=== PATIENT | female | born 2000 | race Caucasian/White ===

== ENCOUNTER 2019-08-29 21:35 | Inpatient (IN) ==
[2019-08-29] MEDS ORDERED: OXYTOCIN 30 UNITS/500 ML BAG IV PRN ×2 (23:06→23:10)
[2019-08-29] MEDS ORDERED: LACTATED RINGER'S 1,000 ML IV PRN (23:06)
[2019-08-29] MEDS ORDERED: ePHEDrine sulfate 50 MG/ML AMP ONE (23:12)
[2019-08-29] MEDS ORDERED: BUPIVACAINE 0.25% 30 ML VIAL ONE (23:13)
[2019-08-29] MEDS ORDERED: fentaNYL citrate 100 MCG/2 ML VIAL ONE (23:13)
[2019-08-29] MEDS ORDERED: fentaNYL 2MCG/ML ROPIV 1.25MG/ML 100 ML BAG EPI ONE (23:14)
--- NOTE | 2019-08-29 23:16 | History & Physical Report ---
Date of Service August 29, 2019 Assessment & Plan (1) Full-term PROM with onset of labor within 24 hours of rupture: (2) Need for rhogam due to Rh negative mother: (3) Late care affecting , antepartum: admit, iv labs. pt desires epidural for pain mgmt. consult anesth. if ctx space, may need to augment with pitocin. rhogam eval pp. fhts categ 1. History of Present Illness Chief Complaint: leaking clear fluid Primary Care Provider: Ranulfo Reynolds MD Chart Review 19yo at 38+wks ega by LMP and c/w 1st and 2nd trimester US, presents to L&D with leaking fluid and regular ctx. Per nurse cx changed from 3cm to 4cm with regular labor pattern and evidence of gross srom. PNC c/b 1. Late care, 20 wks to our office but then compliant with pnc 2. EIF on us, declined panorama 3. Rh neg PNL RH neg, RI, GBS neg OBH G1 GYNH: no stds, pap apr 2019 wnl, no TZ PMH: neg PSH: wisdom teeth extraction SH: neg tob, etoh and drugs FH: no rea anom, mr Allergies Allergy/AdvReac Type Severity Reaction Status Date / Time No Known Allergies Allergy Verified 08/23/19 08:51 Home Medications Home Medications Medication Instructions Recorded Confirmed Type prenat.vits,lenard,lzu-adpp-yfdgi 1 tab PO DAILY 04/19/19 08/29/19 History Patient History Family History (Updated 04/19/19 @ 16:20 by Cheryl Macias) Grandfather (Maternal) Cancer Aunt Leukemia Social History (Updated 04/19/19 @ 16:22 by Cheryl Macias) Preferred Language: Uzbek Communication Ability: Effective Bleach Range Operator Required: No Beliefs That Will Affect Care: None marital status: Single marital status details: Luis Alberto Munoz III ([phone]) Current Living Situation: Significant Other Current Living Situation Comment: lives alone with 2 dogs. current occupational status: employed current occupation: direct service professional Feels Safe at Home: Yes Safety Concerns: Feels Safe At This Time Smoking Status: Former smoker Hx Alcohol Use: No Hx Substance Use: No Physical Exam Constitutional: WD/WN, vitals as above Genitourinary: Manual OB Exam: + cervical dilation (per nurse) 4 cm and + amniotic fluid (soaked pad in hr in L&D c/w gross SROM) clear and nitrazine positive OB Exam Monitor Tracing: + external FHT monitor used (145 mod variability, accels), + external uterine monitor used (not well traced ctx q3), + category I and + normal FHT variability Results & Data Vital Signs (Past 12 Hours) Vital Signs Temp Pulse Resp BP 08/29/19 21:42 98.4 F 78 18 133/71 08/29/19 21:40 78 133/71 Coding Level of Care Code None Diagnoses Full-term PROM with onset of labor within 24 hours of rupture O42.02 Need for rhogam due to Rh negative mother Z29.13 Late care affecting , antepartum O09.30
[2019-08-29 23:28] LABS: Hematocrit (blood only) 34.4 % (37-47); Hemoglobin 11.8 g/dL (12.0-16.0); Mean Corpuscular Hemoglobin 31.2 pg (25-34); Mean Platelet Volume 9.9 fL (7.4-10.4); Platelet Count 306 K/uL (130-400); RDW Coefficient of Variation 13.1 % (11.5-14.5); RDW Standard Deviation 43.2 fL (36.4-46.3); Red Blood Count 3.78 M/uL (4.2-5.4); White Blood Count 17.22 K/uL (4.8-10.8)
[2019-08-29 23:29] LABS: Mean Corpuscular Hgb Conc 34.3 g/dL (32-36)
[2019-08-29] MEDS ORDERED: NALOXONE HCL 0.4 MG/1 ML VIAL/CARP IV PRN (23:55)
[2019-08-29] MEDS ORDERED: NALOXONE HCL 1 MG in SODIUM CHLORIDE 0.9% 1000ML 1,000 ML IV PRN (23:55)
[2019-08-29] MEDS ORDERED: DiphenhydrAMINE HCL 50 MG/ML VIAL IV PRN (23:55)
[2019-08-29] MEDS ORDERED: ONDANSETRON INJ 2 MG/ML 2 ML VIAL IV PRN (23:55)
[2019-08-29] MEDS ORDERED: fentaNYL 2MCG/ML ROPIV 1.25MG/ML 100 ML BAG EPI PRN (23:55)
[2019-08-29] MEDS ORDERED: ePHEDrine sulfate 50 MG/ML AMP IV PRN (23:55)
[2019-08-29] MEDS ORDERED: NALBUPHINE HCL INJ 10 MG/ML AMP IV PRN (23:55)
--- NOTE | 2019-08-29 23:59 | Anesthesiology Consultation ---
Date of Service August 29, 2019 Assessment & Plan Chart Review Chart Review: Patient NOT seen in Pre Admission Testing and Acceptable Risk for Labor Epidural Consults Requested none ASA ASA2 Proposed Anesthesia Anesthesia Type: Labor Epidural and CSE Risk / Benefits Reviewed With: PT / POA / Parent / Guardian, Accepts Plan and Informed Consent Obtained History Height/Weight Height: 5 ft 2 in Weight: 82.554 kg Allergies Allergy/AdvReac Type Severity Reaction Status Date / Time No Known Allergies Allergy Verified 08/23/19 08:51 Medications Home Medications Medication Instructions Recorded Confirmed Last Taken prenat.vits,lenard,zup-wewx-dyxvr 1 tab PO DAILY 04/19/19 08/29/19 08/29/19 Active Medications Generic Name Dose Route Start Last Admin Trade Name Freq PRN Reason Stop Dose Admin Lactated Ringer's 1,000 mls @ 125 mls/hr 08/29/19 23:06 08/29/19 23:50 Lr IV 08/31/19 23:05 125 mls/hr .Q8H PRN Infusion L&D Protocol Protocol NPO Date Last Intake of Fluids: 08/29/19 Time Last Intake of Fluids: 21:00 Date Last Intake of Solids: 08/29/19 Time Last Intake of Solids: 19:00 Past Medical History Medical History Abnormal ultrasonic finding on screening of mother Cervical cancer screening Encounter for anatomic survey Hx of migraines Exercise / Class Metabolic Activity II 4-5 Yardwork/Stairs/Walk up hill Past Family History Family History Grandfather (Maternal) Cancer Aunt Leukemia Past Surgical History Surgical History S/P wisdom tooth extraction Past Anesthesia History No Hx of Anesthesia Complications and No Family Hx of Anesthesia Complications History of PONV No Hx of PONV and No Hx of Motion Sickness Social History Smoking Status: Former smoker Hx Alcohol Use: No Hx Substance Use: No Review of Systems no chest pain or sob Physical Exam Vital Signs Last Vital Signs Temp 36.9 C 08/29/19 21:42 Pulse 99 H 08/29/19 23:55 Resp 18 08/29/19 21:42 BP 133/71 08/29/19 21:42 Pulse Ox 100 08/29/19 23:55 ENMT Mouth: no TMJ abnormality Thyromental Distance: > or= 3.5 Finger Breadths Mallampati Class: II Neck normal visual inspection Respiratory normal respiratory effort Auscultation: lungs clear to auscultation bilaterally Cardiovascular Rate/Rhythm: regular rate and regular rhythm Musculoskeletal Spine: normal cervical ROM Neurologic moves all extremities Psychiatric Orientation: alert and oriented x 3 Testing Laboratory Results 08/29/19 23:18
[2019-08-30] MEDS ORDERED: OXYTOCIN 30 UNITS/500 ML BAG IV PRN (02:36)
[2019-08-30] MEDS ORDERED: HYDROCORTISONE ACETATE 25 MG SUPP PR PRN (02:36)
[2019-08-30] MEDS ORDERED: SUPERCREAM 0.870% 15 GM JAR EXT PRN (02:36)
[2019-08-30] MEDS ORDERED: DIPHTHERIA/TETANUS/PERTUSSIS 0.5 ML SYR/VIAL IM ONE (02:36)
[2019-08-30] MEDS ORDERED: BENZOCAINE 20% AER SPR 82.5 GM CAN EXT PRN (02:36)
[2019-08-30] MEDS ORDERED: OXYCODONE/ACETAMINOPHEN 5mg/325mg TAB PO PRN (02:36)
--- NOTE | 2019-08-30 02:39 | Delivery Summary ---
Vaginal Delivery Summary Date of Service August 30, 2019 The patient dilated to complete and pushed to deliver a viable female Apgars 8 and 9 via over intact perineum. Mouth and nose bulb suctioned at perineum. Shoulders and body delivered with ease. Infant was vigorous and crying at . Cord clamped at 30 seconds of life and to maternal abdomen where the cord was then doubly clamped and cut. Placenta delivered spontaneously and intact, three-vessel cord. Hemostasis achieved with dilute pitocin and uterine massage. Cervix and sulci intact. Small vaginal laceration at left hymenal ring stitched with figure of eight of 0 vicryl. EBL 300 cc. Mother and baby stable recovery. [facility] Vaginal Delivery Charge Vaginal Delivery Codes: 49669 global code for the antepartum, delivery, and post-
[2019-08-30] MEDS ORDERED: LACTATED RINGER'S 1,000 ML IV SCH (02:45)
[2019-08-30] MEDS: IBUPROFEN 600 MG TAB PO PRN ×3 (05:17→21:04)
--- NOTE | 2019-08-30 07:21 | Anesthesia Procedure Note ---
Date of Service August 30, 2019 Anesthesia Post Epidural Note Vital Signs Vital Signs: Temp Pulse Resp BP Pulse Ox 37.1 C 90 18 136/77 97 08/30/19 05:00 08/30/19 05:00 08/30/19 05:00 08/30/19 05:00 08/30/19 05:00 Pain Intensity Abdomen: Pain Intensity: 1 Notes Mental Status: alert / awake / arousable and participated in evaluation Patient Amnestic to Procedure: Yes Nausea / Vomiting: adequately controlled Pain: adequately controlled Airway Patency, RR, SpO2: stable & adequate BP & HR: stable & adequate Hydration State: stable & adequate Anesthetic Complications: no major complications apparent and Pt Satisfied with anesthetic care
[2019-08-30] MEDS: PRENATAL VITAMIN 1 TAB PO SCH (08:31)
[2019-08-30] MEDS: DOCUSATE SODIUM 100 MG CAP PO SCH ×2 (08:31→21:01)
[2019-08-30] MEDS: ACETAMINOPHEN 325 MG TAB PO PRN (21:03)
--- NOTE | 2019-08-31 05:50 | Obstetrical Progress Note ---
Date of Service August 31, 2019 Assessment & Plan Admission and Anticipated Discharge Date Admission Date: August 29, 2019 19 yo s/p VD @38+1, Rh - -PPD# 1 - GBS negative, Blood Type O- Rhogam received - Feels well today. Eating well, voiding well, ambulating well. - Pain well controlled. - Routine post care - After discharge will have [address] Quijano. Supervising Physician Co-Signing Physician Notes Resident Physician Supervision Note: I was present with Dr. Dover during the history and exam. I discussed the case with the resident and agree with the findings and plan as documented in the note. Any exceptions or clarifications are listed here: [None] Documented By: Arsalan Sampson MD, FACOG Subjective Lianne Rizo is doing well this morning eating a regular diet without nausea or vomiting. She states that she is having light bleeding. She has been breast feeding, but states that there has been pain and despite the nipple shield she was still having difficulty so she has started to also give Soledad some bottle food. She stated that she did not have any pain this morning. Review of Systems Review of Systems: Denies fever, chills, sweats Denies shortness of breath, difficulty breathing, chest pain, palpitations, chest pressure. Denies breast pain. Denies dysuria. Denies headache. Physical Exam Physical Exam: General: Alert, oriented. No acute distress. Cardiac: Regular rate and rhythm, no murmurs/rubs/gallops. Respiratory: Clear to auscultation anterior and posteriorly, no wheezes/rales/rhonchi. No increased work of breathing. Symmetrical chest rise. No respiratory distress. Abdomen: Soft, nontender, nondistended. Bowel sounds present. Uterus: Uterine fundus firm, palpable 1 cm below umbilicus. Lower Extremities: No lower extremity edema or swelling. No deep calf pain. Dayne's negative bilaterally. Results & Data ([facility]) Vital Signs (Past 12 Hours) Vital Signs Temp Pulse Resp BP 08/31/19 00:20 36.8 C 82 18 121/79 08/30/19 19:45 36.6 C 79 16 126/79 Resident Activity Tracking Resident Involvement: Resident Care Provided Care Provided: Adult [facility]
[2019-08-31] MEDS: IBUPROFEN 600 MG TAB PO PRN ×2 (08:57→19:23)
[2019-08-31] MEDS: DOCUSATE SODIUM 100 MG CAP PO SCH (08:57)
[2019-08-31] MEDS: PRENATAL VITAMIN 1 TAB PO SCH (08:57)
[2019-08-31] MEDS: ACETAMINOPHEN 325 MG TAB PO PRN (12:09)
[2019-08-31 17:55] VITALS: BP 120/78; PULSE 77; TEMP 98.2; O2SAT 97
== END 2019-08-31 19:30 | disposition home or self-care (01) | DRG 806 ==
LOC: OPB 21:35 → 4S1 21:37 → 4S2 08-30 05:25

== ENCOUNTER 2023-03-11 10:58 | Inpatient (IN) ==
[2023-03-11] MEDS ORDERED: LACTATED RINGER'S 1,000 ML IV PRN (11:06)
[2023-03-11] MEDS ORDERED: OXYTOCIN 30 UNITS/NSS 30 UNITS/500 ML BAG IV PRN ×2 (11:06→12:55)
[2023-03-11] MEDS ORDERED: LIDOCAINE 1% LOCAL 20 ML VIAL INFIL PRN (11:06)
--- NOTE | 2023-03-11 11:15 | History & Physical Report ---
Date of Service March 11, 2023 Assessment & Plan (1) Previous delivery affecting , antepartum: Plan: Lianne is a 22-year-old G3, P2 currently at 40 weeks 4 days gestational age presents in active labor desiring trial of labor after . Patient aware of risks which were previously discussed and consent provided and reviewed and signed. 1. Fetus: Category 1 tracing 2. Labor: In active labor desiring trial of labor after as noted above. 3. GBS negative 4. Vitals within normal limits (2) Need for rhogam due to Rh negative mother: (3) Normal labor and delivery: History of Present Illness Primary Care Provider: NO PCP Lianne is a 22-year-old G3, P2 currently at 40 weeks 4 days gestational age presents in active labor. complicated by prior for breech presentation. First was a vaginal delivery. Patient aware of risks of trial of labor/. Can see otherwise complicated by Rh- status. OB Labs: Blood Type O Negative 09/02/22 Antibody Screen NEGATIVE 12/17/22 Hemoglobin 10.6 g/dl (12.0-16.0) L 12/17/22 Hematocrit 31.3 % (37.0-47.0) L 12/17/22 Mean Corpuscular Volume 90.3 fL (80.0-100.0) 09/02/22 Platelet Count 304 K/uL (130-400) 09/02/22 Rubella IgG Antibody Immune (Immune) 09/02/22 Rapid Plasma Reagin Nonreactive (Nonreactive) 09/02/22 Hepatitis B Surface Antigen Neg (Neg) 04/19/19 Hepatitis B Surface Antigen. NON-REACTIVE (NON-REACTIVE) 09/02/22 Hepatitis C Antibody (EIA) NON-REACTIVE (NON-REACTIVE) 09/02/22 HIV (1&2) Ab and P24 Ag, 4th Gener Neg (Neg) 04/19/19 HIV (1&2) Ag and Ab Confirmation NON-REACTIVE (NON-REACTIVE) 09/02/22 Glucose 1 Hour 50 gm Load 139 mg/dl (70-130) H 12/17/22 OB Optional Labs: Chlamydia trachomatis RNA Not Detected (NotDetected) 09/02/22 Neisseria gonorrhoeae RNA Not Detected (NotDetected) 09/02/22 Labs Reviewed: declines cfDNA- TJ[facility] gbs neg Allergies Allergy/AdvReac Type Severity Reaction Status Date / Time No Known Allergies Allergy Verified 03/04/23 10:54 Home Medications Medication Instructions Recorded Confirmed Type prenat.vits,lenard,hko-tiku-akggu 1 tab PO QPM 04/19/19 03/04/23 History famotidine 20 mg tablet (Pepcid) 20 mg PO DAILY PRN gerd 03/03/23 03/04/23 History iron 1 cap PO QPM 03/03/23 03/04/23 History Patient History Medical History Hx of migraines Surgical History Status post surgery cyst removed from Left leg x3 S/P section S/P wisdom tooth extraction Family History Grandfather (Maternal) Cancer Aunt Leukemia Denies family history of Ovarian cancer Breast cancer Colorectal cancer Social History Smoking Status: Former smoker Second Hand Exposure: No; Do You Dip or Chew Tobacco: No; Hx Alcohol Use: No Hx Substance Use: No Preferred Language: Mongolian Communication Ability: Effective Program Advocate Required: No Beliefs That Will Affect Care: None marital status: Single marital status details: Luis Alberto Lozanosaba III (23) [phone] Current Living Situation: Spouse and Family Current Living Situation Comment: lives with spouse, 2 children, dogs current occupational status: unemployed current occupation: homemaker Feels Safe at Home: Yes Assistive Devices: Glasses Physical Exam Genitourinary: Manual OB Exam: + cervical dilation 7 cm, + cervical effacement 90% and + station 0 OB Exam Monitor Tracing: + external FHT monitor used, + external uterine monitor used, + category I and + normal FHT variability; no early decelerations present, no late decelerations present and no variable decelerations Coding Level of Care Code None Diagnoses Previous delivery affecting , antepartum O34.219 Need for rhogam due to Rh negative mother Z29.13 Normal labor and delivery O80
[2023-03-11] MEDS ORDERED: fentaNYL citrate PF 100 MCG/2 ML VIAL ONE (11:48)
[2023-03-11] MEDS ORDERED: ePHEDrine sulfate 50 MG/ML AMP ONE (11:48)
[2023-03-11] MEDS ORDERED: SODIUM CHLORIDE 0.9% PF INJ 10 ML VIAL ONE (11:50)
[2023-03-11] MEDS ORDERED: fentANYL 2 MCG/ML BUPIVacaine 0.125%-NSS 100ML BAG ONE (11:50)
[2023-03-11] MEDS ORDERED: LIDOCAINE 2%/EPINEPHRINE 1:200,000 20 ML PF ONE (11:50)
[2023-03-11] MEDS ORDERED: BUPIVACAINE 0.25% PF 30 ML VIAL ONE (11:50)
[2023-03-11 11:57] LABS: Hematocrit (blood only) 35.3 % (37.0-47.0); Hemoglobin 12.1 g/dl (12.0-16.0); Mean Corpuscular Hemoglobin 31.2 pg (25.0-34.0); Mean Corpuscular Hgb Conc 34.3 g/dL (32.0-36.0); Mean Platelet Volume 10.5 fL (9.4-12.4); Platelet Count 244 K/uL (130-400); RDW Coefficient of Variation 13.2 % (11.5-14.5); RDW Standard Deviation 43.8 fL (36.4-46.3); Red Blood Count 3.88 M/uL (4.20-5.40); White Blood Count 12.93 K/ul (4.8-10.8)
[2023-03-11] MEDS ORDERED: HYDROCORTISONE ACETATE 25 MG SUPP PR PRN (12:55)
[2023-03-11] MEDS ORDERED: ACETAMINOPHEN 325 MG TAB PO PRN (12:55)
[2023-03-11] MEDS ORDERED: DIPHTHERIA/TETANUS/PERTUSSIS Vaccine (Tdap, Age 7+yrs) 0.5mL SYR/VL IM ONE (12:55)
[2023-03-11] MEDS ORDERED: bisacodyL 10 MG SUPP PR PRN (12:55)
[2023-03-11] MEDS ORDERED: BENZOCAINE 20% SPRY 85 APPLN/85 GM CAN EXT PRN (12:55)
--- NOTE | 2023-03-11 12:58 | Delivery Summary ---
Vaginal Delivery Summary Date of Service March 11, 2023 Vaginal Delivery Summary and 1st Degree LAC Lianne progressed to 10 cm dilated 100% effaced positive to station without augmentation. Patient pushed over approximately 4-6 contractions to achieve delivery. Had the delivered in YEIMI position rest due to left transverse. A single loose nuchal was noted which was easily reduced. Body and shoulders quickly followed. was noted to be vigorous soon after del tommy and a 1 minute delayed cord clamping was initiated. The cord was then double clamped and cut and remained on maternal abdomen. Cord blood was obtained. Attention was then turned to deliver the placenta which delivered intact with three-vessel cord with gentle cord traction. Minimal bleeding was noted following delivery of the placenta. There is noted to be a first-degree perineal laceration which was repaired with three interrupted's stitch using 3-0 Vicryl. Needle sponge and instrument counts were correct at the completion of the case. Both mother and stable in the immediate postdelivery. [facility] Vaginal Delivery Charge Delivery Type Details: and 1st Degree LAC
[2023-03-11] MEDS: IBUPROFEN 600 MG TAB PO PRN ×2 (14:07→21:19)
--- OUTSIDE RECORDS SUMMARY | 2023-03-11 16:46 | External Medical Summary | Summary of Care ---
Author Name Unknown Organization [facility] Address [address] [place] [address] Phone [phone] Care Team Providers Care Resistance Welder Name Role Phone Ranulfo Reynolds MD Primary Care Provider Encounter Details Date Type Department Care Team (Late st Contact Info) Description 03/10/2023 Orders Only Outcomes Research Department [address] [place] [address] Bailey Beasley CHRA [employer] Research Other*[id number] Allergies No known active allergiesdocumented as of this encounter (statuses as of 03/10/2023) Medications Medication Sig Dispensed Refills Start Date End Date Status Breast PumpIndications:Breas t feeding status of mother Z39.1 MARILYN 01/25/21 Spectra S2 Use as directed, double electric pump with supplies 1 Each 0 11/03/2020 Active documented as of this encounter (statuses as of 03/10/2023) Active Problems Problem Noted Date Diagnosed Date Vaginal cyst 03/02/2021 Overview: 1cm x 2cm right sided cyst of vaginal wall (near cervix), Pt denies any pain or discomfort. Continue to monitor at Annual COVERAGE ANALYST INFORMATION 08/03/2019 Overview: Received information from [facility]: 1 with [facility] 09/12/2019. documented as of this encounter (statuses as of 03/10/2023) Resolved Problems Problem Noted Date Diagnosed Date Resolved Date 38 weeks gestation of 01/17/2021 03/02/2021 presentation, breech 01/17/2021 1 05/02/2020 Subchorionic hemorrhage in first trimester 08/01/2020 10/04/2020 Supervision of other normal 07/04/2020 03/02/2021 Overview: Problem Action Taken Date entered Entered by Date resolved Need for baby supplies Refer to local support centers 07/04/2020 Frederic Rondon RN 07/04/20 Need for food assistance referred to [facility] and local food What the Trend 07/04/2020 Frederic Rondon RN 07/04/20 Poor dental hygiene encourage routine brushing and flossing 07/04/2020 Frederic Rondon RN 07/04/20 education 1st trimester education given 07/04/2020 Frederic Rondon RN 07/04/20 .1st have you cut down with your smoking NA have you quit NA have you seen a raw stock drier tender No have you seen a hospital social worker No are you receiving counseling No have you received dental care during your No are you enrolled in [facility] No do you receive food stamps or acevedo assistance Food 07/04/2020 Frederic Rondon RN 07/04/20 Problem Action Taken Date entered Entered by Date resolved Second trimester Education complete 08/01/2020 Ladonna Sky RN 08/01/2020 Problem Action Taken Date entered Entered by Date resolved Current needs or questions Patient denies having any current needs or questions 08/30/2020 Frederic Rondon RN 08/30/20 Problem Action Taken Date entered Entered by Date resolved Current needs or questions Patient denies having any current needs or questions 10/04/2020 Frederic Rondon RN 10/04/20 Problem Action Taken Date entered Entered by Date resolved 2nd have you cut down with your smoking no have you quit no have you seen a raw stock drier tender no have you seen a hospital social worker no are you receiving counseling no have you received dental care during your no are you enrolled in WIC yes do you receive food stamps or acevedo assistance food stamps 11/03/2020 Ladonna Sky RN 11/03/2020 Problem Action Taken Date entered Entered by Date resolved Current needs or questions Patient denies having any current needs or questions 11/17/2020 Ladonna Sky RN 11/17/2020 Problem Action Taken Date entered Entered by Date resolved Current needs or questions Patient denies having any current needs or questions 12/15/2020 Karla Leon RN 12/15/2020 Problem Action Taken Date entered Entered by Date resolved Current needs or questions Patient denies having any current needs or questions 12/28/2020 Karla Leon RN 12/28/2020 Problem Action Taken Date entered Entered by Date resolved Current needs or questions Patient denies having any current needs or questions 01/05/2021 Karla Leon RN 01/05/2021 Rh negative status during 07/04/2020 03/02/2021 Short interval between pregn ancies complicating , antepartum 07/04/202003/02 Ovarian cyst 07/04/2020 03/02/2021 Overview: 2.3 x 1.5 x 1.1 cm R paraovarian cyst. Rh negative, antepartum 08/03/201909/13 Supervision of normal first 05/03/2019 06/28/2019 Rh negative status during pr egnancy in second trimester 05/03/2019 06/28/2019 documented as of this encounter (statuses as of 03/10/2023) Immunizations Name Administration Dates Next Due HPV Vaccine, 4-Valent 05/21/2010,12/28/2009,07/2009 Meningococcal B, OMV AJD, 2- Dose Series (BEXSERO) 02/27/2017 Meningococcal Conjugate Vacc ine (Menactra/Menveo) 2014,05/18/2009 Seasonal Influenza Virus Vac cine, Unspecified Formulation 01/12/2014,05/11/2013,02/11/2012,02/21,01/23/2009 TDAP (age 10 and older)(Boostrix) 11/03/2020 TDAP (age 11 and older)(Adacel) 06/21/2019,05/18 documented as of this encounter Social History Tobacco Use Types Packs/Day Years Used Date Smoking Tobacco: Former Smokeless Tobacco: Never Alcohol Use Standard Drinks/Week Comments Never 0 (1 standard drink = 0.6 oz pur e alcohol) AUDIT-C Answer Date Recorded Frequency of Alcohol Consumption Never 05/03/2019 Average Number of Drinks Not on file 020 Frequency of Binge Drinking Not on file 04/15 PHQ-2 Answer Date Recorded PHQ Adult Total Score 0 11/17/2020 Claiborne Depression Scale Answer Date Recorded Claiborne Depression Scale Total 0 03/02/2021 The thought of harming myself has occurred to me . Never 03/02/2021 Sex and Gender Information Value Date Recorded Sex Assigned at Female 07/30/2021 8:48 AM EDT Gender Identity Female 07/30/2021 8:48 AM EDT Sexual Orientation Not on file Job Start Date Occupation Industry Not on file Not on file Not on file documented as of this encounter Plan of Treatment Scheduled Orders Name Type Priority Associated Diagnoses Orde r Schedule MYCODE INITIAL ADULT Lab Routine [facility] Other*[id number] Expected: 03/10/2023 (Approximate), Expires: 03/29/2024 Health Maintenance Due Date Last Done Comments Hepatitis B (1 of 3 - 3-dose series) 1998 COVID-19 Vaccine (#1) 1998 Depression Screening 11/17/2021 11/17/2020 Gonorrhea / Chlamydia Screen 03/02/2022, 07/04/2020, 05/03/2019, Additional history exists Pap Smear 05/03/2022 05/03/2019 Influenza Vaccine (FLU shot) (#1) 2022 01/12/2014, 05/11/2013, 02/11/2012, Additional history exists DTaP,Tdap,and Td Vaccines (4 - Td or Tdap) 11/03/2030 11/03/2020, 06/21/2019, 05/18/2009 GARDASIL-HPV IMMUNIZATION SERIES Completed 05/21/2010, 12/28/2009, 05/18/2009 MENINGOCOCCAL (MENACTRA/MENVEO) Completed 2014, 05/18/2009 Pneumococcal Vaccine: Pediatrics (0 to 5 Years) and At-Risk Patients (6 to 64 Years) Aged Out No longer eligible based on patient's age to complete this topic documented as of this encounter Medical Devices Not on filedocumented as of this encounter Visit Diagnoses Diagnosis [facility] Other*[id number] documented in this encounter Advance Directives Latest Code Status on File Code Status Date Activated Date Inactivated Comments Full Code 01/17/2021 1:26 PM 01/19/2021 2:46 PM This order reflects the patients wishes and were consensually agreed upon. Question Answer Comments Does the patient have a Living Will? No Does the patient have Health Care Power of Manager Configuration? No Care Teams Resistance Welder Relationship Specialty Start Date End Date Ranulfo Reynolds MD [address] [id number] [place] [id number] PCP - General Family Medicine 05/03/19 documented as of this encounter
[2023-03-11] MEDS: DOCUSATE SODIUM 100 MG CAP PO SCH (21:18)
--- NOTE | 2023-03-12 04:34 | Obstetrical Progress Note ---
Date of Service <Ramiro Hernández - Last Filed: 03/12/23 06:11> March 12, 2023 Assessment & Plan <Ramiro Hernández DO - Last Filed: 03/12/23 06:11> (1) , delivered: (2) Need for rhogam due to Rh negative mother: Plan 22 year old female, , PPD#1: Eating well, voiding well, ambulating well Vitals reviewed, WNL Pain well controlled with Motrin Routine post care - OOB, ambulation, diet progression as tolerated Will have 6 week follow up with Dr. Pope <Jose Pope MD - Last Filed: 03/13/23 09:38> (1) , delivered: (2) Need for rhogam due to Rh negative mother: Subjective <Ramiro Hernández - Last Filed: 03/12/23 06:11> Ambulation: ambulating normally Voiding: no voiding problems Passing Gas:: Yes Diet Tolerance:: regular diet Lochia:: Moderate Feeding Type:: breast feeding Pain well controlled with Motrin Review of Systems -Denies fever or chills -Denies dyspnea, chest pain, or palpitations -Denies dysuria -Denies headache or changes in vision Physical Exam <Ramiro Hernández - Last Filed: 03/12/23 06:11> General: Alert and oriented. No acute distress Cardiac: Regular rate and rhythm, no murmurs appreciated Respiratory: Lungs clear to auscultation bilaterally, No increased work of breathing Abdominal: Soft, non-tender, non-distended. Bowel sounds present. Uterus: Uterine fundus firm, palpable below umbilicus Extremities: No lower extremity edema, calves non-tender bilaterally Results & Data <Ramiro Hernández - Last Filed: 03/12/23 06:11> Vital Signs (Past 12 Hours) Vital Signs Temp Pulse Resp BP Pulse Ox O2 Del Method 03/11/23 23:20 36.9 C 66 18 112/63 96 Room Air 03/11/23 19:55 36.8 C 62 20 116/57 L 98 Room Air Supervising Physician <Jose Pope MD - Last Filed: 03/13/23 09:38> Co-Signing Physician Notes Patient seen with resident and agree with the above findings and plan. Stable for discharge Resident Activity Tracking <Ramiro Hernández DO - Last Filed: 03/12/23 06:11> Resident Involvement: Resident Care Provided Care Provided: OB Delivery
[2023-03-12] MEDS: IBUPROFEN 600 MG TAB PO PRN (06:40)
[2023-03-12] MEDS ORDERED: FERROUS SULFATE 325 MG TAB PO SCH (08:00)
[2023-03-12] MEDS ORDERED: PRENATAL VITAMIN 1 TAB PO SCH (08:00)
[2023-03-12 08:42] VITALS: BP 110/67; PULSE 69; RESP 18; TEMP 97.9; O2SAT 98
[2023-03-12] MEDS: DOCUSATE SODIUM 100 MG CAP PO SCH (09:58)
[2023-03-12] MEDS ORDERED: bisacodyL 5 MG TABEC PO SCH (20:00)
== END 2023-03-12 14:50 | disposition home or self-care (01) | DRG 807 ==
LOC: OPB 10:58 → 4S1 10:59 → 4E1 15:05
DX: Z3A.40 40 weeks gestation of pregnancy; O69.81X0 Labor and delivery complicated by cord around neck, without compression, not applicable or unspecified; O34.219 Maternal care for unspecified type scar from previous cesarean delivery; Z87.891 Personal history of nicotine dependence; Z29.13 Encounter for prophylactic Rho(D) immune globulin; O70.0 First degree perineal laceration during delivery; Z37.0 Single live birth; Z67.91 Unspecified blood type, Rh negative; O26.893 Other specified pregnancy related conditions, third trimester